=== PATIENT | female | born 2005 | race Caucasian/White ===

== ENCOUNTER 2024-07-30 16:18 | Emergency (ER) | payer MEDICAID ==
[~2024-07-30] VITALS: Ht 170.2 cm; Wt 136.4 kg
[2024-07-30 16:23] VITALS: BP 131/69; PULSE 72; RESP 18; TEMP 98.6; O2SAT 99
[2024-07-30 16:49] LABS: APPEARANCE,URINE CLEAR (CLEAR); BILIRUBIN,URINE NEGATIVE (NEGATIVE); COLOR,URINE LIGHT YELLOW (YELLOW); GLUCOSE, URINE (UA) NEGATIVE (NEGATIVE); KETONES,URINE NEGATIVE (NEGATIVE); LEUKOCYTE ESTERASE ,URINE NEGATIVE (NEGATIVE); NITRATE,URINE NEGATIVE (NEGATIVE); OCCULT BLOOD,URINE NEGATIVE (NEGATIVE); PROTEIN,URINE NEGATIVE (NEGATIVE); SPECIFIC GRAVITIY, URINE 1.027 (1.003-1.030); UROBILINOGEN,URINE <=1.0 mg/dL (<=1.0)
[2024-07-30 16:58] LABS: BASOPHILS % (AUTO) 0.5 % (0.0-2.0); EOSINOPHILS % (AUTO) 1.3 % (1.0-6.0); HEMATOCRIT 36.3 % (36-46); HEMOGLOBIN 11.6 g/dL (12.0-16.0); LYMPHOCYTES # (AUTO) 3.3 K/uL (1.0-4.8); LYMPHOCYTES % (AUTO) 26.2 % (22.0-44.0); MEAN CORPUSCULAR HEMOGLOBIN 23.5 pg (26.0-34.0); MEAN CORPUSCULAR HGB CONC 31.8 G/dL (31.0-37.0); MEAN CORPUSCULAR VOLUME 74 fL (80-100); MONOCYTES # (AUTO) 0.5 K/uL (0.1-1.0); MONOCYTES % (AUTO) 4.1 % (2.0-9.0); NEUTROPHILS # (AUTO) 8.4 K/uL (1.8-7.7); NEUTROPHILS % (AUTO) 67.9 % (40.0-70.0); PLATELET COUNT (AUTO) 271 K/uL (150-450); RED BLOOD CELL COUNT(AUTO) 4.93 MIL/uL (4.00-5.20); RED CELL DISTRIBUTION WIDTH 16.9 % (11.5-14.5); WHITE BLOOD COUNT (AUTO) 12.4 K/uL (4.5-11.0)
[2024-07-30 17:02] LABS: ANION GAP 9 mmol/L (8-16); CALCIUM, TOTAL 8.6 mg/dL (8.8-10.5); CARBON DIOXIDE 25 mmol/L (22-29); CHLORIDE 104 mmol/L (98-107); CREATININE 0.79 mg/dL (0.60-1.30); GLOMERULAR FILTR. RATE CALC > 60 mL/min (>60); GLUCOSE,RANDOM 86 mg/dL (70-110); POTASSIUM 3.7 mmol/L (3.5-5.1); SODIUM SERUM 138 mmol/L (136-145); UREA NITROGEN, BLOOD 12 mg/dL (7-18)
[2024-07-30 17:13] LABS: HCG,QUANTITATIVE 61 mIU/mL (0-6); LIPASE 23 U/L (16-77)
[2024-07-30 17:20] LABS: RBC MORPHOLOGY COMMENT ABNORMAL RBC MORPH
[2024-07-30] MEDS ORDERED: PYRI25TA4 PO (17:54)
== END 2024-07-30 18:09 | disposition home or self-care (01) ==
LOC: EMS 16:18
DX: O21.9 Vomiting of pregnancy, unspecified (principal); F12.90 Cannabis use, unspecified, uncomplicated; Z88.6 Allergy status to analgesic agent; Z90.49 Acquired absence of other specified parts of digestive tract; Z3A.01 Less than 8 weeks gestation of pregnancy
CPT/HCPCS: 80048; 81003; 83690; 84702; 85025; 99283

== ENCOUNTER 2025-01-06 09:11 | Emergency (ER) | payer MEDICAID, OTHER ==
[~2025-01-06] VITALS: Ht 170.2 cm; Wt 150.0 kg
[~2025-01-06 09:11] MED LIST: PYRI25TA4 PO
[2025-01-06 09:25] VITALS: TEMP 97.7
[2025-01-06] MEDS: FLUCONAZOLE 150 MG TABLET PO ONE (10:00)
[2025-01-06] MEDS: BENZOCAINE/RESORCINOL 30 GM CREAM TP ONE (10:00)
[2025-01-06 10:07] VITALS: BP 118/62; PULSE 87; RESP 18; O2SAT 97
[2025-01-06] MEDS: OXYMETAZOLINE HCL 0.05% 15 ML NASAL SPRAY NASAL ONE (10:10)
== END 2025-01-06 10:40 | disposition home or self-care (01) ==
LOC: EMS 09:17
DX: B37.9 Candidiasis, unspecified (principal); Z88.6 Allergy status to analgesic agent; Z90.49 Acquired absence of other specified parts of digestive tract
CPT/HCPCS: 99284; Z7502; Z7610

== ENCOUNTER 2025-03-13 09:44 | Emergency (ER) | payer OTHER ==
[~2025-03-13] VITALS: Ht 170.2 cm; Wt 136.4 kg
[2025-03-13 10:27] LABS: PLATELET COUNT (AUTO) 208 K/uL (150-450); RED BLOOD CELL COUNT(AUTO) 4.16 MIL/uL (4.00-5.20); RED CELL DISTRIBUTION WIDTH 14.8 % (11.5-14.5); WHITE BLOOD COUNT (AUTO) 12.1 K/uL (4.5-11.0)
[2025-03-13 10:42] LABS: CALCIUM, TOTAL 8.6 mg/dL (8.8-10.5); CREATININE 0.68 mg/dL (0.60-1.30); GLOMERULAR FILTR. RATE CALC > 60 mL/min (>60); GLUCOSE,RANDOM 105 mg/dL (70-110); SODIUM SERUM 137 mmol/L (136-145); UREA NITROGEN, BLOOD 9 mg/dL (7-18)
[2025-03-13 11:28] VITALS: BP 119/71; PULSE 68; RESP 18; TEMP 98.2; O2SAT 99
== END 2025-03-13 11:32 | disposition home or self-care (01) ==
LOC: EMS 09:49
DX: O26.893 Other specified pregnancy related conditions, third trimester (principal); Z88.6 Allergy status to analgesic agent; Z90.49 Acquired absence of other specified parts of digestive tract; Z79.899 Other long term (current) drug therapy; Z3A.37 37 weeks gestation of pregnancy
CPT/HCPCS: 76811; 80048; 84702; 85025; 86850; 86900; 86901; 99284

== ENCOUNTER 2025-05-21 11:05 | Emergency (ER) | payer OTHER ==
[~2025-05-21] VITALS: Ht 162.6 cm; Wt 145.4 kg
[2025-05-21 11:16] VITALS: TEMP 98
[2025-05-21] MEDS: ACETAMINOPHEN 500 MG TABLET PO ONE (12:43)
[2025-05-21 13:14] VITALS: BP 129/82; PULSE 83; RESP 16; O2SAT 98
[2025-05-21] MEDS ORDERED: ACET-2247 PO (13:50)
[2025-05-21] MEDS: OxyCODONE HCL 5 MG IR TABLET PO ONE (14:00)
== END 2025-05-21 14:10 | disposition home or self-care (01) ==
LOC: EMS 11:09
DX: M79.675 Pain in left toe(s) (principal); M79.672 Pain in left foot; Z90.49 Acquired absence of other specified parts of digestive tract; Z88.6 Allergy status to analgesic agent; W22.03XA Walked into furniture, initial encounter
CPT/HCPCS: 99284